=== PATIENT | female | born 1965 | race Caucasian/White ===

== ENCOUNTER → 2017-01-21 | Outpatient (CLI) | payer OTHER ==
[2017-01-21 11:32] LABS: Blood Urea Nitrogen 19 mg/dL (7-17); Non-African American GFR(MDRD) >60 (>60 ml/min/1.73 sqM)
--- NOTE | 2017-01-21 14:44 | CT ---
CT right shoulder with and without contrast HISTORY: Right shoulder pain Helical acquisition through the right shoulder pre- and postadministration of 100 cc Omni 300 IV. Cor onal and sagittal reconstructions, three-dimensional reconstructions on an alternate workstation No plain film for correlation. There is hypertrophic change of the acromioclavicular joint. Findings suggest some thickening of the inferior glenohumeral ligament. Bone mineralization is maintained. Long head of biceps tendon shows n ormal position. Glenohumeral joint is intact. No fracture or dislocation. Distal acromion is downturn ed. There is a distal acromial spur present. No morena rotator cuff tear with retraction is evident on CT. No abnormal enhancement following contrast administration. Right lung apex as visualized is norm al. Old healed fractures are present in the posterior right fourth rib and seventh ribs. No evident a xillary adenopathy. IMPRESSION: There may be some thickening of the inferior glenohumeral ligament suggesting adhesive ca psulitis. Correlate for impingement. Acromioclavicular joint arthropathy. Contrast resolution not opt imal on CT is compared to MRI.
== END ==
LOC: RADCTMAIN 10:48
PROVIDERS: ATTEND Orthopaedic Surgery
DX: M19.011 Primary osteoarthritis, right shoulder (principal)
CPT/HCPCS: 82565; 84520; 36415; 73202; Q9967

== ENCOUNTER → 2017-09-29 | Outpatient (CLI) | payer OTHER ==
--- NOTE | 2017-09-29 13:16 | XR ---
EXAMINATION TYPE: XR wrist complete RT DATE OF EXAM: 09/29/2017 COMPARISON: NONE HISTORY: Wrist sprain, pain x2 weeks TECHNIQUE: 4 view right wrist FINDINGS: Soft tissues are normal. Joint spaces are preserved. No acute fractures are evident. If there is pain at the anatomic snuff box, a nuclear medicine bone scan can be performed for additio nal evaluation. IMPRESSION: 1. No acute osseous abnormality radiographically apparent.
== END | disposition home or self-care (01) ==
LOC: RADXRMAIN 12:33
PROVIDERS: ATTEND Emergency Medicine
DX: M25.531 Pain in right wrist (principal)

== ENCOUNTER → 2017-12-06 | Outpatient (CLI) | payer OTHER ==
--- NOTE | 2017-12-07 12:07 | MM ---
Reason for exam: screening (asymptomatic). History: Family history of breast cancer in cousin. Excisional biopsy of both breasts, 2009. Physical Findings: A clinical breast exam by your physician is recommended on an annual basis and results should be correlated with mammographic findings. MG 3D Screening Mammo W/Cad Bilateral CC and MLO view(s) were taken. No prior studies available for comparison. The breast tissue is heterogeneously dense. This may lower the sensitivity of mammography. Finding #1: There is a 6 mm circumscribed oval mass in the upper quadrant, anterior position of the left breast. Finding #2: There are typically benign round, regional, grouped and diffuse calcifications in both breasts. Previous mammotome biopsy in the left breast.. Smaller nodularity near 6mm lesion. Asymmetric breast tissue in the left breast at clip posterior upper outer quadrant. ASSESSMENT: Incomplete: need additional imaging evaluation, BI-RAD 0 RECOMMENDATION: Ultrasound of the left breast. [facility] will attempt to contact patient to return for ultrasound.
== END | disposition home or self-care (01) ==
LOC: RADMAMWWP 15:17
PROVIDERS: ATTEND Internal Medicine
DX: Z12.31 Encounter for screening mammogram for malignant neoplasm of breast (principal); Z00.01 Encounter for general adult medical examination with abnormal findings
CPT/HCPCS: 77063; 77067

== ENCOUNTER → 2017-12-23 | Outpatient (CLI) | payer OTHER ==
--- NOTE | 2017-12-26 08:21 | USB ---
Reason for exam: additional evaluation requested from abnormal screening. History: Family history of breast cancer in cousin. Excisional biopsy of both breasts, 2009. Physical Findings: Nurse did not find any significant physical abnormalities on exam. US Breast Workup Limited LT Left limited breast ultrasound including focal area of concern, retroareolar and axilla demonstrates a 1.0 x 0.8 x 0.5cm cluster of three, oval, cystic lesion at 12 o'clock relates to the mammographic finding and a 0.4 x 0.4 x 0.2cm oval, cluster, cystic lesion at 10 o'clock. These results were verbally communicated with the patient and result sheet given to the patient on 12/23/17. ASSESSMENT: Benign, BI-RAD 2 RECOMMENDATION: Return to routine screening mammogram schedule for both breasts.
== END | disposition home or self-care (01) ==
LOC: RADUSWWP 15:49
PROVIDERS: ATTEND Internal Medicine
DX: R92.8 Other abnormal and inconclusive findings on diagnostic imaging of breast (principal)

== ENCOUNTER 2018-12-18 22:06 | Emergency (ER) | payer OTHER ==
[2018-12-18 22:21] VITALS: BP 147/84; TEMP 98.4
--- NOTE | 2018-12-18 22:33 | ED ---
Fall HPI - General Chief Complaint: Fall Stated Complaint: Fall Time Seen by Provider: 12/18/18 22:28 Source: patient, EMS, RN notes reviewed, old records reviewed Mode of arrival: EMS Limitations: no limitations - History of Present Illness Initial Comments: This is a 53-year-old female the ER status post fall. The second presentation for fall. Complaining of fall with right rib pain. Patient had a prior evaluation with the pain is just persisted right-sided rib pain no significant shortness of breath the pain is worse with deep breath worse with cough. Denies any other trauma or pain from fall. MD Complaint: fall -: days(s) Fall From: standing When Fall Occurred: # days CABLE FORMER Fall Witnessed: no Place Fall Occurred: home Loss of Consciousness: none Prolonged Down Time?: no Symptoms Prior to Fall: none Location: chest Severity: moderate Severity scale (1-10): 4 Quality: dull, aching Context: tripped/slipped Associated Symptoms: denies - Related Data Allergies Allergy/AdvReac Type Severity Reaction Status Date / Time No Known Allergies Allergy Verified 12/18/18 22:13 Review of Systems ROS Statement: Those systems with pertinent positive or pertinent negative responses have been documented in the HPI. ROS Other: All systems not noted in ROS Statement are negative. Past Medical History Past Medical History: COPD, Diabetes Mellitus, Hyperlipidemia, Hypertension History of Any Multi-Drug Resistant Organisms: None Reported Past Surgical History: Cholecystectomy, Coronary Bypass/CABG, Tubal Ligation Additional Past Surgical History / Comment(s): CABG x2, lithotripsy, cardiac stent Past Psychological History: No Psychological Hx Reported Smoking Status: Current every day smoker Past Alcohol Use History: None Reported Past Drug Use History: None Reported General Exam - General Exam Comments Initial Comments: Right-sided rib tenderness Limitations: no limitations General appearance: alert, in no apparent distress Head exam: Present: atraumatic, normocephalic, normal inspection Eye exam: Present: normal appearance, PERRL, EOMI. Absent: scleral icterus, conjunctival injection, periorbital swelling ENT exam: Present: normal exam, mucous membranes moist Neck exam: Present: normal inspection. Absent: tenderness, meningismus, lymphadenopathy Respiratory exam: Present: normal lung sounds bilaterally. Absent: respiratory distress, wheezes, rales, rhonchi, stridor Cardiovascular Exam: Present: regular rate, normal rhythm, normal heart sounds. Absent: systolic murmur, diastolic murmur, rubs, gallop, clicks GI/Abdominal exam: Present: soft, normal bowel sounds. Absent: distended, tenderness, guarding, rebound, rigid Extremities exam: Present: normal inspection, full ROM, normal capillary refill. Absent: tenderness, pedal edema, joint swelling, calf tenderness Back exam: Present: normal inspection Neurological exam: Present: alert, oriented X3, CN II-XII intact Psychiatric exam: Present: normal affect, normal mood Skin exam: Present: warm, dry, intact, normal color. Absent: rash Course Vital Signs 12/18/18 22:13 Temperature 98.4 F Pulse Rate 98 Respiratory 20 Rate Blood Pressure 147/84 O2 Sat by Pulse 95 Oximetry - Reevaluation(s) Reevaluation #1: 12/18/18 23:39 Medical record reviewed Reevaluation #2: 12/18/18 23:39 A she has pain control, no distress Medical Decision Making - Medical Decision Making 53 female the ER status post fall positive rib fractures on the right. Pain is controlled currently, no pneumothorax. Patient will be discharged home with pain control - Radiology Data Radiology results: report reviewed (Chest x-ray and rib study positive for right-sided rib fractures 5 and 6), image reviewed Disposition Clinical Impression: Fall, Right rib fracture Disposition: HOME SELF-CARE Condition: Good Instructions (If sedation given, give patient instructions): Rib Fracture (ED) Is patient prescribed a controlled substance at d/c from ED?: No Referrals: Nithya Samuel DO [Primary Care Provider] - 1-2 days
--- NOTE | 2018-12-18 23:27 | XR ---
EXAM: XR Right Ribs, 2 Views CLINICAL HISTORY: ITS.REASON XR Reason: Pain TECHNIQUE: Frontal and oblique views of the right ribs. COMPARISON: No relevant prior studies available. FINDINGS: Lungs: Right lower lung subsegmental atelectasis. Pleural space: No definitive pneumothorax or significant hemothorax identified radiographically. Heart: Mild cardiomegaly. Sternotomy wires. Bones/joints: Acute fracture of the right sixth lateral rib with slight offset. There is also a nondisplaced fracture of the lateral seventh rib. Multiple other rib deformities in the posterior lateral upper right ribs are chronic, with regional callus formation. IMPRESSION: 1. Acute fractures at the lateral right sixth and seventh ribs. 2. Multiple chronic posterior lateral rib deformities. 3. Nonacute findings as above.
[2018-12-18] MEDS ORDERED: Acetaminophen-Codeine 300-30mg TAB PO STA (23:38)
[2018-12-18] MEDS ORDERED: ACET/COD 300 MG/30 MG STARTER PACK 6 TAB BTL PO STA (23:38)
[2018-12-19 00:10] VITALS: PULSE 92; RESP 18
== END 2018-12-19 00:10 | disposition home or self-care (01) ==
LOC: EC 22:06
DX: S22.41XA Multiple fractures of ribs, right side, initial encounter for closed fracture (principal); J44.9 Chronic obstructive pulmonary disease, unspecified; E11.9 Type 2 diabetes mellitus without complications; E78.5 Hyperlipidemia, unspecified; I10 Essential (primary) hypertension; F17.200 Nicotine dependence, unspecified, uncomplicated; Z90.49 Acquired absence of other specified parts of digestive tract; Z95.1 Presence of aortocoronary bypass graft; Z95.5 Presence of coronary angioplasty implant and graft; Z98.51 Tubal ligation status; Z98.890 Other specified postprocedural states; W01.0XXA Fall on same level from slipping, tripping and stumbling without subsequent striking against object, initial encounter; Y92.009 Unspecified place in unspecified non-institutional (private) residence as the place of occurrence of the external cause
CPT/HCPCS: 99284

== ENCOUNTER → 2019-01-15 | Outpatient (CLI) | payer OTHER ==
--- NOTE | 2019-01-15 15:46 | CT ---
EXAMINATION TYPE: CT chest w con DATE OF EXAM: 01/15/2019 COMPARISON: Radiograph 12/18/2018 HISTORY: 53-year-old female Pulmonary nodules TECHNIQUE: Contiguous axial scanning of the chest after the administration of 100 mL of Isovue 300. Coronal/sagittal reconstructions performed. CT DLP: 681mGycm. Automatic exposure control utilized for a dose reduction. FINDINGS: Heart upper limits of normal in size without pericardial effusion. Median sternotomy wires are presen t with post-CABG changes. Aorta normal caliber with bovine configuration to the aortic arch. No thoracic lymphadenopathy by CT size criteria. There is mild bronchial wall thickening and very mild scattered emphysematous change. Mild respiratory motion artifacts. There is a 6 mm right lower lobe pulmonary nodule axial image 31. There is a 6 mm anterior left midlu ng pulmonary nodule, axial image 24. 4 mm peripheral left lower lobe pulmonary nodule, axial image 37. No morena consolidation or pleural effusion. Low-attenuation hepatic parenchyma suggesting fatty infiltration. Cholecystectomy clips are present. Bones: Nondisplaced fractures of the right lateral third through seventh ribs. Old healed fracture deformities right lateral fourth, fifth, and seventh ribs. IMPRESSION: 1. Nondisplaced fractures of the right lateral third through seventh ribs. Old healed fracture deform ities right lateral fourth, fifth, and seventh ribs. No pneumothorax or pleural effusion. 2. COPD with very mild emphysematous change. 3. A couple 6 mm pulmonary nodules and one 4 mm pulmonary nodule. 6 month follow-up CT recommended to reassess. 4. Hepatic steatosis.
== END | disposition home or self-care (01) ==
LOC: RADCTMAIN 14:11
PROVIDERS: ATTEND Family Medicine
DX: J43.9 Emphysema, unspecified (principal); R91.8 Other nonspecific abnormal finding of lung field; S22.41XA Multiple fractures of ribs, right side, initial encounter for closed fracture
CPT/HCPCS: 71260; Q9967

== ENCOUNTER → 2019-08-17 | Outpatient (CLI) | payer OTHER ==
--- NOTE | 2019-08-17 10:34 | MM ---
Reason for exam: screening (asymptomatic). Last mammogram was performed 1 year and 8 months ago. History: Family history of breast cancer in cousin. Excisional biopsy of both breasts, 2009. Physical Findings: A clinical breast exam by your physician is recommended on an annual basis and results should be correlated with mammographic findings. MG Screening Mammo w CAD Bilateral CC and MLO view(s) were taken. Prior study comparison: December 06, 2017, bilateral MG 3d screening mammo w/cad. The breast tissue is heterogeneously dense. This may lower the sensitivity of mammography. There are benign appearing round regional calcifications in the left breast. Previous mammotome biopsy in the left breast. There is chronic nodularity in the left breast. There is no discrete abnormality. ASSESSMENT: Benign, BI-RAD 2 RECOMMENDATION: Routine screening mammogram of both breasts in 1 year.
== END | disposition home or self-care (01) ==
LOC: RADMAMWWP 08:33
PROVIDERS: ATTEND Family Medicine
DX: Z12.31 Encounter for screening mammogram for malignant neoplasm of breast (principal)
CPT/HCPCS: 77067

== ENCOUNTER 2021-08-10 10:17 | Emergency (ER) | payer MEDICARE, OTHER ==
[2021-08-10 10:30] VITALS: BP 119/67; PULSE 85; RESP 18; TEMP 97
--- NOTE | 2021-08-10 10:56 | ED ---
General Adult HPI - General Chief complaint: Recheck/Abnormal Lab/Rx Stated complaint: Poss CO poisioning Time Seen by Provider: 08/10/21 10:25 Source: patient, RN notes reviewed, old records reviewed Mode of arrival: ambulatory Limitations: no limitations - History of Present Illness Initial comments: This is a 55-year-old female who presents to the emergency department after having had a regular checkup at her [employer] office. Patient was told that her carbon monoxide was elevated. Patient states she lives with her daughter who is new home has a defective furnace potentially and she was told to come in and be followed up. Patient states she has no symptoms other than a very slight headache. - Related Data Allergies Allergy/AdvReac Type Severity Reaction Status Date / Time No Known Allergies Allergy Verified 08/10/21 10:29 Review of Systems ROS Statement: Those systems with pertinent positive or pertinent negative responses have been documented in the HPI. ROS Other: All systems not noted in ROS Statement are negative. Past Medical History Past Medical History: COPD, Diabetes Mellitus, Hyperlipidemia, Hypertension History of Any Multi-Drug Resistant Organisms: None Reported Past Surgical History: Cholecystectomy, Coronary Bypass/CABG, Tubal Ligation Additional Past Surgical History / Comment(s): CABG x2, lithotripsy, cardiac stent Past Psychological History: No Psychological Hx Reported Smoking Status: Current every day smoker Past Alcohol Use History: None Reported Past Drug Use History: None Reported General Exam - General Exam Comments Initial Comments: GENERAL: Patient is well-developed and well-nourished. Patient is nontoxic and well- hydrated and is in no acute distress. ENT: Neck is soft and supple. No significant lymphadenopathy is noted. Oropharynx is clear. Moist mucous membranes. Neck has full range of motion without eliciting any pain. EYES: The sclera were anicteric and conjunctiva were pink and moist. Extraocular movements were intact and pupils were equal round and reactive to light. Eyelids were unremarkable. PULMONARY: Unlabored respirations. Good breath sounds bilaterally. No audible rales rhonchi or wheezing was noted. CARDIOVASCULAR: There is a regular rate and rhythm without any murmurs gallops or rubs. ABDOMEN: Soft and nontender with normal bowel sounds. SKIN: Skin is clear with no lesions or rashes and otherwise unremarkable. NEUROLOGIC: Patient is alert and oriented x3. Cranial nerves II through XII are grossly intact. Motor and sensory are also intact. Normal speech, volume and content. Symmetrical smile. MUSCULOSKELETAL: Normal extremities with adequate strength and full range of motion. No lower extremity swelling or edema. No calf tenderness. LYMPHATICS: No significant lymphadenopathy is noted PSYCHIATRIC: Normal psychiatric evaluation. Limitations: no limitations Course Vital Signs 08/10/21 10:24 Temperature 97.0 F L Pulse Rate 85 Respiratory 18 Rate Blood Pressure 119/67 O2 Sat by Pulse 100 Oximetry Medical Decision Making - Medical Decision Making Patient's chest x-ray showed no acute abnormality. Patient's comatose is negative. Patient's carboxyhemoglobin test was within a smokers range. Patient headache had resolved and she was asymptomatic. - Lab Data Lab Results 08/10/21 08/10/21 Range/Units 10:58 10:58 Carbon Monoxide, Quant 6.8 (<10.0) % Coronavirus (PCR) Not Detected (Not Detectd) Disposition Clinical Impression: Carbon monoxide detector present Disposition: HOME SELF-CARE Condition: Good Instructions (If sedation given, give patient instructions): Carbon Monoxide Poisoning (ED) Is patient prescribed a controlled substance at d/c from ED?: No Referrals: Nithya Samuel DO [Primary Care Provider] - 1-2 days Time of Disposition: 12:21
--- NOTE | 2021-08-10 11:43 | XR ---
EXAMINATION TYPE: XR chest 1V portable DATE OF EXAM: 08/10/2021 COMPARISON: Chest CT January 15, 2019. Chest x-ray December 18, 2018. HISTORY: Shortness of breath. TECHNIQUE: Single AP portable frontal upright view of the chest is obtained. FINDINGS: There is chronic emphysematous and parenchymal changes bilaterally without suspicious new air space opacity, pleural effusion, or pneumothorax seen. Cardiomegaly is redemonstrated with overly ing sternal wires and mediastinal clips from CABG procedure again seen. The osseous structures are demineralized. Old fractures of the posterior right fourth and fifth ribs is present. IMPRESSION: Chronic changes and cardiomegaly without acute pulmonary process.
== END 2021-08-10 12:35 | disposition home or self-care (01) ==
LOC: EC 10:17
DX: T58.91XA Toxic effect of carbon monoxide from unspecified source, accidental (unintentional), initial encounter (principal); F17.200 Nicotine dependence, unspecified, uncomplicated; J44.9 Chronic obstructive pulmonary disease, unspecified; E11.9 Type 2 diabetes mellitus without complications; I10 Essential (primary) hypertension; Z20.822 Contact with and (suspected) exposure to COVID-19
CPT/HCPCS: 71045; 82375; 87635; 99283

== ENCOUNTER 2022-06-24 02:20 | Emergency (ER) | payer MEDICARE, OTHER ==
[2022-06-24] MEDS ORDERED: SODIUM CHLORIDE 0.9% 1,000 ML IV STA (02:52)
--- NOTE | 2022-06-24 02:57 | ED ---
URI HPI - General Source: patient, RN notes reviewed Mode of arrival: ambulatory - History of Present Illness MD Complaint: fever, cough, rhinorrhea, nasal congestion <Cameron Nagel - Last Filed: 06/24/22 04:06> <Mercedes Shah - Last Filed: 06/24/22 07:23> - General Chief Complaint: Upper Respiratory Infection Stated Complaint: cough, fever Time Seen by Provider: 06/24/22 02:46 - History of Present Illness Initial Comments: This is a pleasant 56-year-old female with history of diabetes. She presents to the emergency department today complaining of body aches, cough, runny nose, sore throat, headache. Patient states she's also had a subjective fever. States she has had some shaking chills. no changes in vision or hearing, no sore throat or difficulty with speech, no neck pain, CHEST discomfort only with coughing., no abdominal pain, no nausea or vomiting, no changes in urination or bowel movements, no numbness or tingling, no extremity pain, no skin rashes or lesions. Past medical, surgical, social, and family history reviewed. (Cameron Nagel) - Related Data Previous Rx's Medication Instructions Recorded Benzonatate [Tessalon Perles] 100 mg PO TID PRN #15 capsule 06/24/22 guaiFENesin-Coden 100-10MG/5ML 10 ml PO Q6H PRN 3 Days #120 ml 06/24/22 [Robitussin AC] predniSONE [Deltasone] 20 mg PO BID #10 tab 06/24/22 Allergies Allergy/AdvReac Type Severity Reaction Status Date / Time No Known Allergies Allergy Verified 06/24/22 02:43 Review of Systems ROS Other: All systems not noted in ROS Statement are negative. <Cameron Nagel - Last Filed: 06/24/22 04:06> ROS Other: All systems not noted in ROS Statement are negative. <Mercedes Shah - Last Filed: 06/24/22 07:23> ROS Statement: Those systems with pertinent positive or pertinent negative responses have been documented in the HPI. Past Medical History Past Medical History: COPD, Diabetes Mellitus, Hyperlipidemia, Hypertension History of Any Multi-Drug Resistant Organisms: None Reported Past Surgical History: Cholecystectomy, Coronary Bypass/CABG, Tubal Ligation Additional Past Surgical History / Comment(s): CABG x2, lithotripsy, cardiac stent Past Psychological History: No Psychological Hx Reported Smoking Status: Current every day smoker Past Alcohol Use History: None Reported Past Drug Use History: None Reported <Cameron Nagel - Last Filed: 06/24/22 04:06> General Exam General appearance: alert, in no apparent distress Head exam: Present: atraumatic, normocephalic, normal inspection Eye exam: Present: normal appearance, PERRL, EOMI. Absent: scleral icterus, conjunctival injection, periorbital swelling ENT exam: Present: normal exam, normal oropharynx, mucous membranes moist, TM's normal bilaterally, normal external ear exam. Absent: mucous membranes dry Neck exam: Present: normal inspection, full ROM. Absent: tenderness, meningismus, lymphadenopathy Respiratory exam: Present: rhonchi (Mild scattered rhonchi bilaterally). Absent: respiratory distress, wheezes, rales, stridor, chest wall tenderness, accessory muscle use, decreased breath sounds, prolonged expiratory Cardiovascular Exam: Present: regular rate, normal rhythm, normal heart sounds. Absent: systolic murmur, diastolic murmur, rubs, gallop, clicks GI/Abdominal exam: Present: soft, normal bowel sounds. Absent: distended, tenderness, guarding, rebound, rigid Extremities exam: Present: normal inspection, full ROM, normal capillary refill. Absent: tenderness, pedal edema, joint swelling, calf tenderness Back exam: Present: normal inspection Neurological exam: Present: alert, oriented X3, CN II-XII intact Psychiatric exam: Present: normal affect, normal mood Skin exam: Present: warm, dry, intact, normal color. Absent: rash <Cameron Nagel - Last Filed: 06/24/22 04:06> - General Exam Comments Initial Comments: Patient appears to be mildly ill but not toxic. Capillary refill is around 3 seconds. There is no mottling. Patient has moist mucous membranes. (Cameron Nagel) Course Vital Signs 06/24/22 06/24/22 06/24/22 02:40 02:54 04:15 Temperature 98 F Pulse Rate 75 80 Respiratory 20 18 20 Rate Blood Pressure 90/53 105/60 O2 Sat by Pulse 96 96 Oximetry Medical Decision Making - Radiology Data Radiology results: report reviewed, image reviewed <Cameron Nagel - Last Filed: 06/24/22 04:06> - Lab Data Result diagrams: 06/24/22 03:53 06/24/22 03:53 <Mercedes Shah - Last Filed: 06/24/22 07:23> - Medical Decision Making Patient does have a borderline blood pressure 90/53. Given the patient's symptomatology, I'm going to order laboratory investigations to include septic workup. However, this may be due to the fact the patient is a quadruple therapy blood pressure patient. Patient symptomology most consistent with upper respiratory infection with cough. Suspect the patient does not have a bacterial infection. Does not appear to be consistent with cardiovascular disease. Patient will be endorsed to the ED attending physician, Dr. Shah at 4 AM for further evaluation and disposition. Patient positive for COVID-19. (Cameron Nagel) The patient was signed out to me by Fletcher. I did review the patient's laboratory studies. It demonstrated a hypokalemia, LUCÍA, hypomagnesemia. Covid and influenza are not detected. I discussed the results with the patient. She was given magnesium and potassium replacement. I also provided the patient with normal saline bolus. I discussed diagnosis, differential and treatment options. Patient would like to be discharged home. I instructed her to increase fluid intake. She will be started back on her magnesium supplement. She needs to follow up next week for repeat laboratory studies to her primary care office. She is going to be placed on steroids for her suspected bronchitis. She needs to watch her sugars closely. She will also be given codeine cough syrup and tessalon perles for cough. She is to return for any new or worsening symptoms for which she was agreeable. Patient discharged with stable condition Patient has not positive for Covid (Mercedes Shah) - Lab Data Lab Results 06/24/22 06/24/22 06/24/22 Range/Units 03:53 03:53 03:53 WBC 5.7 (3.8-10.6) k/uL RBC 3.81 (3.80-5.40) m/uL Hgb 11.1 L (11.4-16.0) gm/dL Hct 31.5 L (34.0-46.0) % MCV 82.5 (80.0-100.0) fL MCH 29.0 (25.0-35.0) pg MCHC 35.1 (31.0-37.0) g/dL RDW 14.4 (11.5-15.5) % Plt Count 212 (150-450) k/uL MPV 8.1 Neutrophils % 68 % Lymphocytes % 21 % Monocytes % 8 % Eosinophils % 1 % Basophils % 1 % Neutrophils # 3.9 (1.3-7.7) k/uL Lymphocytes # 1.2 (1.0-4.8) k/uL Monocytes # 0.4 (0-1.0) k/uL Eosinophils # 0.0 (0-0.7) k/uL Basophils # 0.0 (0-0.2) k/uL PT 10.7 (9.0-12.0) sec INR 1.0 (<1.2) Sodium 136 L (137-145) mmol/L Potassium 3.3 L (3.5-5.1) mmol/L Chloride 98 (98-107) mmol/L Carbon Dioxide 30 (22-30) mmol/L Anion Gap 8 mmol/L BUN 26 H (7-17) mg/dL Creatinine 1.22 H (0.52-1.04) mg/dL Est GFR (CKD-EPI)AfAm 58 (>60 ml/min/1.73 sqM) Est GFR (CKD-EPI)NonAf 50 (>60 ml/min/1.73 sqM) Glucose 116 H (74-99) mg/dL Lactic Ac Sepsis Rflx Plasma Lactic Acid Huey (0.7-2.0) mmol/L Calcium 8.6 (8.4-10.2) mg/dL Magnesium 1.3 L (1.6-2.3) mg/dL Total Bilirubin 0.3 (0.2-1.3) mg/dL AST 44 H (14-36) U/L ALT 35 H (4-34) U/L Alkaline Phosphatase 78 (38-126) U/L Troponin I (0.000-0.034) ng/mL Total Protein 6.5 (6.3-8.2) g/dL Albumin 4.1 (3.5-5.0) g/dL Coronavirus (PCR) (Not Detectd) Influenza Type A RNA (Not Detectd) Influenza Type B (PCR) (Not Detectd) 06/24/22 06/24/22 06/24/22 Range/Units 03:53 03:53 03:53 WBC (3.8-10.6) k/uL RBC (3.80-5.40) m/uL Hgb (11.4-16.0) gm/dL Hct (34.0-46.0) % MCV (80.0-100.0) fL MCH (25.0-35.0) pg MCHC (31.0-37.0) g/dL RDW (11.5-15.5) % Plt Count (150-450) k/uL MPV Neutrophils % % Lymphocytes % % Monocytes % % Eosinophils % % Basophils % % Neutrophils # (1.3-7.7) k/uL Lymphocytes # (1.0-4.8) k/uL Monocytes # (0-1.0) k/uL Eosinophils # (0-0.7) k/uL Basophils # (0-0.2) k/uL PT (9.0-12.0) sec INR (<1.2) Sodium (137-145) mmol/L Potassium (3.5-5.1) mmol/L Chloride (98-107) mmol/L Carbon Dioxide (22-30) mmol/L Anion Gap mmol/L BUN (7-17) mg/dL Creatinine (0.52-1.04) mg/dL Est GFR (CKD-EPI)AfAm (>60 ml/min/1.73 sqM) Est GFR (CKD-EPI)NonAf (>60 ml/min/1.73 sqM) Glucose (74-99) mg/dL Lactic Ac Sepsis Rflx Plasma Lactic Acid Huey 2.1 H* (0.7-2.0) mmol/L Calcium (8.4-10.2) mg/dL Magnesium (1.6-2.3) mg/dL Total Bilirubin (0.2-1.3) mg/dL AST (14-36) U/L ALT (4-34) U/L Alkaline Phosphatase (38-126) U/L Troponin I <0.012 (0.000-0.034) ng/mL Total Protein (6.3-8.2) g/dL Albumin (3.5-5.0) g/dL Coronavirus (PCR) Not Detected (Not Detectd) Influenza Type A RNA (Not Detectd) Influenza Type B (PCR) (Not Detectd) 06/24/22 06/24/22 Range/Units 03:53 04:57 WBC (3.8-10.6) k/uL RBC (3.80-5.40) m/uL Hgb (11.4-16.0) gm/dL Hct (34.0-46.0) % MCV (80.0-100.0) fL MCH (25.0-35.0) pg MCHC (31.0-37.0) g/dL RDW (11.5-15.5) % Plt Count (150-450) k/uL MPV Neutrophils % % Lymphocytes % % Monocytes % % Eosinophils % % Basophils % % Neutrophils # (1.3-7.7) k/uL Lymphocytes # (1.0-4.8) k/uL Monocytes # (0-1.0) k/uL Eosinophils # (0-0.7) k/uL Basophils # (0-0.2) k/uL PT (9.0-12.0) sec INR (<1.2) Sodium (137-145) mmol/L Potassium (3.5-5.1) mmol/L Chloride (98-107) mmol/L Carbon Dioxide (22-30) mmol/L Anion Gap mmol/L BUN (7-17) mg/dL Creatinine (0.52-1.04) mg/dL Est GFR (CKD-EPI)AfAm (>60 ml/min/1.73 sqM) Est GFR (CKD-EPI)NonAf (>60 ml/min/1.73 sqM) Glucose (74-99) mg/dL Lactic Ac Sepsis Rflx Y Plasma Lactic Acid Huey (0.7-2.0) mmol/L Calcium (8.4-10.2) mg/dL Magnesium (1.6-2.3) mg/dL Total Bilirubin (0.2-1.3) mg/dL AST (14-36) U/L ALT (4-34) U/L Alkaline Phosphatase (38-126) U/L Troponin I (0.000-0.034) ng/mL Total Protein (6.3-8.2) g/dL Albumin (3.5-5.0) g/dL Coronavirus (PCR) (Not Detectd) Influenza Type A RNA Not Detected (Not Detectd) Influenza Type B (PCR) Not Detected (Not Detectd) - EKG Data EKG Comments: EKG done at 402 AM and to return immediately revealed sinus rhythm with a rate of 67, normal intervals, normal axis, no acute ST elevation or depression. Minimal T-wave abnormality noted in the precordial leads with regard to flattening. There is no comparison study. (Cameron Nagel) - Radiology Data Two-view chest x-ray read interpreted by me reveals no evidence of acute pathology. No infiltrate. No pneumothorax. No osseous lesion. No cardiomegaly. No pleural effusion. I did review the radiologist's interpretation. (Cameron Nagel) Disposition Is patient prescribed a controlled substance at d/c from ED?: No <Cameron Nagel - Last Filed: 06/24/22 04:06> Time of Disposition: 06:39 <Mercedes Shah - Last Filed: 06/24/22 07:23> Clinical Impression: Upper respiratory tract infection, Hypomagnesemia, Hypokalemia, LUCÍA (acute kidney injury) Disposition: HOME SELF-CARE Condition: Stable Instructions (If sedation given, give patient instructions): Acute Bronchitis (ED) Additional Instructions: Please start taking your magnesium supplement daily. You will have to follow up with the primary care doctor next week. I would like them to repeat your magnesium, potassium and sugar levels. Take the steroid as directed. Use the codeine cough syrup and Tessalon Perles for your cough. Stay well hydrated. Return to the emergency room for any new or worsening symptoms Prescriptions: predniSONE [Deltasone] 20 mg PO BID #10 tab guaiFENesin-Coden 100-10MG/5ML [Robitussin AC] 10 ml PO Q6H PRN 3 Days #120 ml PRN Reason: Cough Benzonatate [Tessalon Perles] 100 mg PO TID PRN #15 capsule PRN Reason: Cough Referrals: Nithya Samuel DO [Primary Care Provider] - 1-2 days
--- NOTE | 2022-06-24 03:08 | XR ---
EXAMINATION TYPE: XR chest 2V DATE OF EXAM: 06/24/2022 COMPARISON: 08/10/2021 HISTORY: Difficulty breathing TECHNIQUE: 2 views FINDINGS: Heart is normal. Lungs are clear of infiltrate. There are sternal wires. Costophrenic angle s are clear. There are no hilar masses. Bony thorax is intact. IMPRESSION: No active cardiopulmonary disease. Normal heart. No change.
[2022-06-24 04:29] VITALS: RESP 20
[2022-06-24 04:39] LABS: Basophils % (A) 1 %; Eosinophils % (A) 1 %; HCT 31.5 % (34.0-46.0); HGB 11.1 gm/dL (11.4-16.0); Lymphocytes # (A) 1.2 k/uL (1.0-4.8); Lymphocytes % (A) 21 %; MCHC 35.1 g/dL (31.0-37.0); MCV 82.5 fL (80.0-100.0); Mean Platelet Volume 8.1; Monocytes # (A) 0.4 k/uL (0-1.0); Monocytes % (A) 8 %; Neutrophils # (A) 3.9 k/uL (1.3-7.7); Neutrophils % (A) 68 %; Platelet Count 212 k/uL (150-450); RBC 3.81 m/uL (3.80-5.40); RDW 14.4 % (11.5-15.5); WBC 5.7 k/uL (3.8-10.6)
[2022-06-24 04:40] LABS: Prothrombin Time 10.7 sec (9.0-12.0)
[2022-06-24 04:45] LABS: Albumin 4.1 g/dL (3.5-5.0); Calcium 8.6 mg/dL (8.4-10.2); Magnesium 1.3 mg/dL (1.6-2.3); Potassium 3.3 mmol/L (3.5-5.1); Total Bilirubin 0.3 mg/dL (0.2-1.3); Total Protein 6.5 g/dL (6.3-8.2)
[2022-06-24] MEDS ORDERED: Magnesium Replacement Protocol 1 EACH MISC MISCELLANE PRN (05:09)
[2022-06-24] MEDS: MAGNESIUM SULFATE-D5W PMX 1 GM in DEXTROSE/WATER 1 100ML.BAG IVPB SCH ×3 (05:20→07:21)
[2022-06-24] MEDS ORDERED: POTASSIUM CHLORIDE ER 20 MEQ TAB.ER PO STA (06:05)
[2022-06-24] MEDS ORDERED: methylPREDNISolone SOD SUCCI 125 MG/2 ML VIAL IV STA (06:06)
[2022-06-24] MEDS ORDERED: BENZONATATE 100 MG CAP PO STA (06:25)
[2022-06-24] MEDS ORDERED: MAGNESIUM OXIDE 400 MG TAB PO STA (06:26)
[2022-06-24 07:25] VITALS: BP 102/64; PULSE 81; TEMP 98.7
== END 2022-06-24 07:33 | disposition home or self-care (01) ==
LOC: EC 02:20
DX: J06.9 Acute upper respiratory infection, unspecified (principal); E83.42 Hypomagnesemia; E87.6 Hypokalemia; N17.9 Acute kidney failure, unspecified; J44.9 Chronic obstructive pulmonary disease, unspecified; E11.9 Type 2 diabetes mellitus without complications; I10 Essential (primary) hypertension; F17.200 Nicotine dependence, unspecified, uncomplicated; Z20.822 Contact with and (suspected) exposure to COVID-19
CPT/HCPCS: 36415; 93005; 80053; 83605; 83735; 84484; 85025; 85610; 87040; 87502; 87635; 71046; 99283; 96365; 96366; 96375; 96361; J2930; J3475

== ENCOUNTER 2022-10-23 21:36 | Emergency (ER) | payer MEDICARE, OTHER ==
[2022-10-23 21:41] VITALS: TEMP 98
--- NOTE | 2022-10-23 22:03 | ED ---
General Adult HPI - General Chief complaint: Back Pain/Injury Stated complaint: lung pain Time Seen by Provider: 10/23/22 21:44 Source: patient, RN notes reviewed, old records reviewed Mode of arrival: ambulatory Limitations: no limitations - History of Present Illness Initial comments: 57-year-old well-appearing female presents to the emergency room with complaints of left lung pain for one month. Patient states that she did see her burn out tender lace Dr. Goss 2 weeks ago who prescribed her steroids which seemed to relieve her discomfort for a while 1 steroids were done pain came back. She states she took her daughter steroids with no relief. Patient does have a history of COPD, diabetes and hypertension. States that she is working on her house and believes that maybe drywall dust that exacerbated her symptoms. Denies any fevers no chest pain. -: month(s) (1) Location: left (posterior back) Radiation: non-radiation Severity scale (1-10): 9 Quality: sharp Consistency: constant Improves with: other (steroids) Treatments Prior to Arrival: other (steroids) - Related Data Previous Rx's Medication Instructions Recorded Benzonatate [Tessalon Perles] 100 mg PO TID PRN #15 capsule 06/24/22 guaiFENesin-Coden 100-10MG/5ML 10 ml PO Q6H PRN 3 Days #120 ml 06/24/22 [Robitussin AC] predniSONE [Deltasone] 20 mg PO BID #10 tab 06/24/22 Allergies Allergy/AdvReac Type Severity Reaction Status Date / Time No Known Allergies Allergy Verified 06/24/22 02:43 Review of Systems ROS Statement: Those systems with pertinent positive or pertinent negative responses have been documented in the HPI. ROS Other: All systems not noted in ROS Statement are negative. Past Medical History Past Medical History: COPD, Diabetes Mellitus, Hyperlipidemia, Hypertension History of Any Multi-Drug Resistant Organisms: None Reported Past Surgical History: Cholecystectomy, Coronary Bypass/CABG, Tubal Ligation Additional Past Surgical History / Comment(s): CABG x2, lithotripsy, cardiac stent Past Psychological History: No Psychological Hx Reported Smoking Status: Current every day smoker Past Alcohol Use History: None Reported Past Drug Use History: None Reported General Exam Limitations: no limitations General appearance: alert, in no apparent distress Head exam: Present: atraumatic Eye exam: Present: normal appearance. Absent: scleral icterus, conjunctival injection, periorbital swelling, periorbital tenderness Neck exam: Present: full ROM. Absent: tenderness, meningismus Respiratory exam: Present: normal lung sounds bilaterally. Absent: respiratory distress, accessory muscle use Cardiovascular Exam: Present: tachycardia Extremities exam: Present: full ROM, normal capillary refill. Absent: tenderness, pedal edema, joint swelling, calf tenderness Back exam: Absent: CVA tenderness (R), CVA tenderness (L) Neurological exam: Present: alert, oriented X3 Psychiatric exam: Present: normal affect, normal mood Skin exam: Present: warm, dry, normal color. Absent: rash, cyanosis, diaphoretic, petechiae, pallor, mottled Course Vital Signs 10/23/22 10/23/22 21:37 23:42 Temperature 98 F Pulse Rate 100 94 Respiratory 20 18 Rate Blood Pressure 124/75 130/81 O2 Sat by Pulse 98 98 Oximetry EKG Findings - EKG Results: EKG: sinus rhythm (Ventricular rate of 74, [place] interval 0.171, QRS 0.89, QTC 0.391, normal axis, no significant change compared to old 06/24/2022) Medical Decision Making - Medical Decision Making Patient states she did receive steroids for her burn out tender lace 2 weeks ago that seemed to help for a while. When she ran out she started using her daughter's steroids which she took yesterday. Chest x-ray shows no acute cardiopulmonary disease or process. No significant change from prior. EKG shows sinus rhythm with ventricular rate of 74, [place] interval 0.171, QRS 0.89, QTC 0.391, normal axis. Old EKG compared 06/24/2022 no significant changes. Pulse ox is 98% on room air. Patient is afebrile. Patient thinks that she may have inhaled drywall dust while working on her house. She was directed to avoid any dust or wear a mask while working. Follow-up with her doctor next week. 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 She was offered Lidoderm patches and declined. She was agreeable to a Toradol shot. Case was discussed with Dr. Nichols. Was pt. sent in by a medical professional or institution (, PA, CAR ELECTRONICS INSTALLER, urgent care, hospital, or fdc...) When possible be specific @ -No Did you speak to anyone other than the patient for history (EMS, parent, family, police, friend...)? What history was obtained from this source @ -No Did you review nursing and triage notes (agree or disagree)? Why? @ -I reviewed and agree with nursing and triage notes Were old charts reviewed (outside hosp., previous admission, EMS record, old EKG, old radiological studies, urgent care reports/EKG's, fdc records)? Report findings @ -No old charts were reviewed Differential Diagnosis (chest pain, altered mental status, abdominal pain women, abdominal pain men, vaginal bleeding, weakness, fever, dyspnea, syncope, headache, dizziness, GI bleed, back pain, seizure, CVA, palpatations, mental health, musculoskeletal)? @ -Differential Dyspnea: Coronary syndrome, arrhythmia, tamponade, asthma, COPD, pulmonary embolism, pneumonia, pneumothorax, pulmonary effusion, anaphylaxis, diabetic ketoacidosis, flailed chest, pulmonary contusion, diaphragmatic rupture, anemia, neuromuscular, this is not meant to be an all-inclusive list. EKG interpreted by me (3pts min.). @ -As above X-rays interpreted by me (1pt min.). @ -yES as above CT interpreted by me (1pt min.). @ -None done U/S interpreted by me (1pt. min.). @ -None done What testing was considered but not performed or refused? (CT, X-rays, U/S, labs)? Why? @ -None What meds were considered but not given or refused? Why? @ -None Did you discuss the management of the patient with other professionals (professionals i.e. , PA, CAR ELECT[employer]ICS INSTALLER, lab, RT, psych nurse, director social service, threshing operator, teacher, legal officer, case management director)? Give summary @ -No Was smoking cessation discussed for >3mins.? @ -No Was critical care preformed (if so, how long)? @ -No Were there social determinants of health that impacted care today? How? (Homelessness, low income, unemployed, alcoholism, drug addiction, transportation, low edu. Level, literacy, decrease access to med. care, [facility], rehab)? @ -No Was there de-escalation of care discussed even if they declined (Discuss DNR or withdrawal of care, Hospice)? DNR status @ -No What co-morbidities impacted this encounter? (DM, HTN, Smoking, COPD, CAD, Cancer, CVA, ARF, Chemo, Hep., AIDS, mental health diagnosis, sleep apnea, morbid obesity)? @ -COPD, diabetes, hypertension, coronary artery disease, smoker Was patient admitted / discharged? Hospital course, mention meds given and route, prescriptions, significant lab abnormalities, going to OR and other pertinent info. @ -Discharged Undiagnosed new problem with uncertain prognosis? @ -No Drug Therapy requiring intensive monitoring for toxicity (Heparin, Nitro, Insulin, Cardizem)? @ -No Were any procedures done? @ -No Diagnosis/symptom? @ -COPD, cough Acute, or Chronic, or Acute on Chronic? @ -Acute on chronic Uncomplicated (without systemic symptoms) or Complicated (systemic symptoms)? @ -Uncomplicated Side effects of treatment? @ -No Exacerbation, Progression, or Severe Exacerbation? @ -No Poses a threat to life or bodily function? How? (Chest pain, [place], [place], pneumonia, PE, COPD, DKA, ARF, appy, cholecystitis, CVA, Diverticulitis, Homicidal, Suicidal, threat to staff... and all critical care pts) @ -No Disposition Clinical Impression: Cough Disposition: HOME SELF-CARE Condition: Good Instructions (If sedation given, give patient instructions): Chronic Cough (ED) Additional Instructions: Avoid dust exposure. Wear a mask when working around the house with dust. Follow-up with your burn out tender lace and primary care doctor next week. Return to the emergency room with any new or concerning symptoms. Tylenol Motrin as needed for pain and discomfort. Continue your previously prescribed medications. Is patient prescribed a controlled substance at d/c from ED?: No Referrals: Nithya Samuel DO [Primary Care Provider] - 1-2 days Time of Disposition: 23:30
[2022-10-23] MEDS ORDERED: KETOROLAC 15 MG/ML 1 ML VIAL IM STA (22:37)
--- NOTE | 2022-10-23 22:53 | XR ---
EXAMINATION TYPE: XR chest 2V DATE OF EXAM: 10/23/2022 10:24 PM COMPARISON: Chest radiographs from 06/24/2022 TECHNIQUE: XR chest 2V Frontal and lateral views of the chest. CLINICAL INDICATION:Female, 57 years old with history of cough; FINDINGS: Lungs/Pleura: There is no evidence of pleural effusion, focal consolidation, or pneumothorax. Pulmonary vascularity: Unremarkable. Heart/mediastinum: Cardiomediastinal silhouette is unremarkable. Musculoskeletal: No acute osseous pathology. Midline sternotomy wires are noted. Other findings: None IMPRESSION: No acute cardiopulmonary disease/process. No significant change from prior.
[2022-10-23 23:43] VITALS: BP 130/81; PULSE 94; RESP 18
== END 2022-10-23 23:46 | disposition home or self-care (01) ==
LOC: EC 21:36
DX: R05.9 Cough, unspecified (principal); E11.9 Type 2 diabetes mellitus without complications; I10 Essential (primary) hypertension; J44.9 Chronic obstructive pulmonary disease, unspecified; E78.5 Hyperlipidemia, unspecified; F17.200 Nicotine dependence, unspecified, uncomplicated; Z95.5 Presence of coronary angioplasty implant and graft
CPT/HCPCS: 93005; 71046; 99284; 96372; J1885

== ENCOUNTER → 2022-10-26 | Outpatient (CLI) | payer MEDICARE, OTHER ==
--- NOTE | 2022-10-26 09:30 | US ---
EXAMINATION TYPE: US kidneys/renal and bladder DATE OF EXAM: 10/26/2022 COMPARISON: NONE CLINICAL HISTORY: R10.9 UNSPECIFIED ABDOMINAL PAIN. EXAM MEASUREMENTS: Right Kidney: 12.7 x 4.7 x 4.2 cm Left Kidney: 13.7 x 6.9 x 5.7 cm Right Kidney: No hydronephrosis or masses seen Left Kidney: No hydronephrosis or masses seen Bladder: wnl Bilateral Jets seen: Yes There is no evidence for hydronephrosis at this point in time. No nephrolithiasis is seen. No kody s are identified. The urinary bladder is anechoic. Bilateral ureteral jets are seen. IMPRESSION: Negative
== END | disposition home or self-care (01) ==
LOC: RADUSWWP 08:56
PROVIDERS: ATTEND Family Medicine
DX: R10.9 Unspecified abdominal pain (principal)
CPT/HCPCS: 76770

== ENCOUNTER → 2023-06-27 | Outpatient (CLI) | payer MEDICARE, OTHER ==
--- NOTE | 2023-06-27 11:29 | US ---
EXAMINATION TYPE: US carotid duplex BILAT DATE OF EXAM: 06/27/2023 COMPARISON: NONE CLINICAL INDICATION: Female, 57 years old with history of I73.9 PERIPHERAL VASCULAR DISEASE, UNSPECIF IED; Hx Double bypass, HTN, DM, Smoker x 42 years, recent ringing in bilateral ears. TECHNIQUE: Carotid duplex ultrasound examination. Indirect Doppler criteria was utilized. FINDINGS: EXAM MEASUREMENTS: RIGHT: Peak Systolic Velocity (PSV) cm/sec ----- Right CCA: 75 ----- Right ICA: 104 ----- Right ECA: 122 ICA/CCA ratio: 1.4 RIGHT: End Diastole cm/sec ----- Right CCA: 15 ----- Right ICA: 32 ----- Right ECA: 14 LEFT: Peak Systolic Velocity (PSV) cm/sec ----- Left CCA: 85 ----- Left ICA: 94 ----- Left ECA: 88 ICA/CCA ratio: 1.1 LEFT: End Diastole cm/sec ----- Left CCA: 24 ----- Left ICA: 32 ----- Left ECA: 11 VERTEBRALS (direction of flow): Right Vertebral: Antegrade Left Vertebral: Antegrade Rhythm: Normal MAINTENANCE SUPERVISOR MECHANICAL NOTES: No intimal thickening bilaterally, elevated right side velocities but still within normal limits, extensive calcified plaque Right CCA Bulb and ICA, and Left distal CCA, Left bulb, an d Left ICA IMPRESSION: Less than 50% stenosis of the bilateral carotid bifurcations. Criteria for Assigning % of Stenosis / Diameter reduction (Estimation based on the indirect measurements of the internal carotid artery velocities (ICA PSV). 1. Normal (no stenosis)=ICA PSV < 125 cm/s: ratio < 2.0: ICA EDV<40 cm/s. 2. Less than 50% stenosis=ICA PSV < 125 cm/s: ratio < 2.0: ICA EDV<40 cm/s. 3. 50 to 69% stenosis=ICA PSV of 125 to 230 cm/s: ration 2.0 ? 4.0: ICA EDV 40-100 cm/s. 4. Greater than 70% stenosis to near occlusion= ICA PSV > 230 cm/s: ratio > 4.0: ICA EDV > 100 cm/s. 5. Near occlusion= ICA PSV velocities may be low or undetectable: variable ratio and ICA EDV. 6. Total occlusion=unable to detect flow.
== END | disposition home or self-care (01) ==
LOC: RADUSWWP 10:45
PROVIDERS: ATTEND Family Medicine
DX: I65.23 Occlusion and stenosis of bilateral carotid arteries (principal); I73.9 Peripheral vascular disease, unspecified; I10 Essential (primary) hypertension; E11.9 Type 2 diabetes mellitus without complications; H93.13 Tinnitus, bilateral
CPT/HCPCS: 93880

== ENCOUNTER → 2023-07-04 | Outpatient (CLI) | payer MEDICARE ==
--- NOTE | 2023-07-05 16:39 | MM ---
Reason for Exam: Screening (asymptomatic). Last mammogram was performed 3 year(s) and 11 month(s) ago. Patient History: Menarche at age 11. First Full-Term at age 25. Postmenopausal. Patient has history of breast feeding. 2010, Bilateral Excisional Biopsy. Maternal cousin had breast cancer. Risk Values: Kalli 5 year model risk: 1.4%. NCI Lifetime model risk: 9.3%. Prior Study Comparison: 12/06/2017 Bilateral Screening Mammogram, [facility]. 08/17/2019 Bilateral Screening Mammogram, [facility]. Tissue Density: There are scattered fibroglandular densities. Findings: Analyzed By CAD. Pattern appears stable. Focal asymmetries in the outer left breast. Benign spherical punctate calcifications are present bilaterally No suspicious groups of microcalcifications, spiculated or lobular masses, architectural distortion or other secondary signs of malignancy are mammographically apparent. Overall Assessment: Benign, BI-RAD 2 Management: Screening Mammogram of both breasts in 1 year. A negative mammogram report should not preclude additional follow up of suspicious palpable abnormalities. Patient should continue monthly self breast exam. A clinical breast exam by your physician is recommended on an annual basis and results should be correlated with mammographic findings. Electronically signed and approved by: Glenn Bassett D.O. Radiologis
== END | disposition home or self-care (01) ==
LOC: RADMAMWWP 10:47
PROVIDERS: ATTEND Family Medicine
DX: Z12.31 Encounter for screening mammogram for malignant neoplasm of breast (principal); Z80.3 Family history of malignant neoplasm of breast; Z78.0 Asymptomatic menopausal state
CPT/HCPCS: 77063; 77067

== ENCOUNTER → 2024-12-10 | Outpatient (CLI) | payer MEDICARE ==
--- NOTE | 2024-12-10 11:49 | MM ---
Reason for Exam: Screening (asymptomatic). Last mammogram was performed 1 year(s) and 5 month(s) ago. Patient History: Menarche at age 11. First Full-Term at age 25. Postmenopausal. Patient has history of breast feeding. 2010, Bilateral Excisional Biopsy. Maternal cousin had breast cancer. Risk Values: Kalli 5 year model risk: 1.6%. NCI Lifetime model risk: 8.9%. Prior Study Comparison: 12/06/2017 Bilateral Screening Mammogram, [facility]. 08/17/2019 Bilateral Screening Mammogram, [facility]. 07/04/2023 Bilateral MG 3D screening mammo w/cad, [facility]. Tissue Density: There are scattered areas of fibroglandular density. Findings: Analyzed By CAD. Left breast biopsy clip. Right breast: There is no suspicious group of microcalcifications or new suspicious mass. Benign-appearing calcifications right breast. Left breast: There is no suspicious group of microcalcifications or new suspicious mass. Benign-appearing calcifications left breast. Overall Assessment: Benign, BI-RAD 2 Management: Screening Mammogram of both breasts in [address] [facility] will attempt to contact patient to return for supplemental views and ultrasound if indicated. Patient should continue monthly self-breast exams. A clinical breast exam by your physician is recommended on an annual basis. This exam should not preclude additional follow-up of suspicious palpable abnormalities. Note on Kalli scores and lifetime risk: 1. A Kalli score greater than 3% is considered moderate risk. If this is the case, consider specialist referral to assess eligibility for a risk reducing agent. 2. If overall lifetime risk for the development of breast cancer is 20% or higher, the patient may qualify for future screening with alternating mammogram and breast MRI. [facility], , 12/10/2024 10:44 AM. Electronically signed and approved by: Sergei Hagen DO
== END | disposition home or self-care (01) ==
LOC: RADMAMWWP 10:30
PROVIDERS: ATTEND Family Medicine
DX: Z12.31 Encounter for screening mammogram for malignant neoplasm of breast (principal); R92.323 Mammographic fibroglandular density, bilateral breasts; R92.1 Mammographic calcification found on diagnostic imaging of breast; Z78.0 Asymptomatic menopausal state; Z80.3 Family history of malignant neoplasm of breast
CPT/HCPCS: 77063; 77067